=== PATIENT | female | born 1995 | race Caucasian/White ===

== ENCOUNTER 2021-06-08 05:29 | Inpatient (IN) | payer OTHER ==
[~2021-06-08] VITALS: Ht 157.5 cm; Wt 75.7 kg
[2021-06-08] MEDS ORDERED: PRENATAL CAPLE1 EAC1 PO (07:25)
[2021-06-08] MEDS ORDERED: SYNTHROID50 MCG PO (07:26)
== END 2021-06-10 11:09 | disposition home or self-care (01) | DRG 806 ==
LOC: OB/GYN 05:29 → LDR 05:29 → OB/GYN 12:14
PROVIDERS: ADMIT Specialist; ATTEND Specialist
PROC: 10E0XZZ Delivery of Products of Conception, External Approach (ICD-10-PCS; principal; 2021-06-08)
PROC: 4A1HXFZ Monitoring of Products of Conception, Cardiac Rhythm, External Approach (ICD-10-PCS; 2021-06-08)
PROC: 10907ZC Drainage of Amniotic Fluid, Therapeutic from Products of Conception, Via Natural or Artificial Opening (ICD-10-PCS; 2021-06-08)
PROC: 3E033VJ Introduction of Other Hormone into Peripheral Vein, Percutaneous Approach (ICD-10-PCS; 2021-06-08)
DX: O24.420 Gestational diabetes mellitus in childbirth, diet controlled (principal); O41.03X0 Oligohydramnios, third trimester, not applicable or unspecified; Z37.0 Single live birth; Z3A.37 37 weeks gestation of pregnancy; O99.284 Endocrine, nutritional and metabolic diseases complicating childbirth; E03.9 Hypothyroidism, unspecified